=== PATIENT | male | born 1985 | race Caucasian/White ===

== ENCOUNTER 2017-05-29 12:10 | Emergency (ER) | payer OTHER ==
[~2017-05-29] VITALS: Ht 160 cm; Wt 71.4 kg
[2017-05-29 12:24] VITALS: BP 151/95
== END 2017-05-29 14:12 | disposition home or self-care (01) ==
LOC: EME 12:10
PROC: 3E0234Z Introduction of Serum, Toxoid and Vaccine into Muscle, Percutaneous Approach (ICD-10-PCS; principal; 2017-05-29)
PROC: 0HQFXZZ Repair Right Hand Skin, External Approach (ICD-10-PCS; principal; 2017-05-29)
DX: S61.216A Laceration without foreign body of right little finger without damage to nail, initial encounter (principal); W26.8XXA Contact with other sharp object(s), not elsewhere classified, initial encounter; Y99.0 Civilian activity done for income or pay; Z23 Encounter for immunization; F17.210 Nicotine dependence, cigarettes, uncomplicated; H91.93 Unspecified hearing loss, bilateral
CPT/HCPCS: 73140; 99281; 99284